=== PATIENT | female | born 1945 | race Caucasian/White ===

== ENCOUNTER 2017-10-05 09:27 | Inpatient (IN) | payer MEDICARE ==
[~2017-10-05] VITALS: Ht 162.6 cm; Wt 90.7 kg
[2017-10-05 09:37] VITALS: BP 192/170
[2017-10-05 09:54] LABS: HEMATOCRIT 38.5 % (37.0-47.0); HEMOGLOBIN 11.9 gm/dL (12.0-15.0); MCHC 30.9 g/dL (28.0-37.0); MCV 90.6 fL (80.0-100.0); MPV 8.9 fl. (7.2-11.1); NUCLEATED RBCS 0 /100WBC; PLATELET COUNT* 168 thou/uL (150-400); RBC 4.25 mil/uL (4.20-5.00); WBC 24.6 thou/uL (4.0-11.0)
[2017-10-05 09:56] LABS: CALCIUM 7.7 mg/dL (8.5-10.1); CREATININE 1.2 mg/dL (0.6-1.3); POTASSIUM 3.5 mmol/L (3.5-5.1)
[2017-10-05 10:00] LABS: APTT 67.2 Seconds (25.0-31.3); INR 1.2; PROTIME 12.1 Seconds (9.20-11.50)
[2017-10-05 10:06] LABS: TROPONIN-I LEVEL 0.21 ng/mL (<0.06)
[2017-10-05 10:17] LABS: ABSOLUTE MONOCYTES 1.7 thou/uL (0.0-1.2); ABSOLUTE NEUTROPHILS 6.9 thou/uL (1.6-8.1); PLATELET ESTIMATE ADEQUATE; TOXIC GRANULATION Occasional
[2017-10-05 10:31] LABS: BE -28.7 mmol/L (-2 to +3)
[2017-10-05 10:33] LABS: HCO3 7.9 mmol/L (22.0-26.0); PCO2 82.3 mmHg (35.0-45.0); PO2 124.4 mmHg (75.0-100.0); pH < 6.702 (7.340-7.450)
[2017-10-05 10:52] LABS: BE -25.5 mmol/L (-2 to +3)
[2017-10-05 10:53] LABS: PCO2 97.8 mmHg (35.0-45.0); PO2 188.3 mmHg (75.0-100.0); pH < 6.702 (7.340-7.450)
[2017-10-05 10:54] LABS: HCO3 10.8 mmol/L (22.0-26.0)
--- NOTE | 2017-10-05 16:12 | H ---
[address] [address] HISTORY AND PHYSICAL Name: DON BABCOCK Room: [address] IN [facility]#: [id number] Admission: 10/05/17 Attend Phys: Mansoor Finney Discharge: Date of : 45 Report #: [id number] THIS REPORT FOR: //name// CC: Tra Razo INDICATION: ST elevation myocardial infarction and cardiac arrest. HISTORY OF PRESENT ILLNESS: The patient is a 72-year-old white female who is unknown to myself. She presented to the emergency room after calling EMS. On route, she had full arrest with bradycardia. At the time of my arrival, she was undergoing acute resuscitative efforts. With multiple boluses of epinephrine and compressions, pulse was reestablished. The patient was intubated. The patient was brought to the cardiac catheterization lab for urgent coronary angiography. The patient continued to be unstable in the catheterization lab. Catheterization revealed a chronically occluded right coronary artery with collaterals. There was diffuse disease with an occluded LAD and a large circumflex with moderate nonocclusive disease noted. At this time, the it generalist was called to see if the right coronary could be open. EKG in the soto showed ST elevation in inferior leads with bifascicular block. A temporary pacemaker was placed during resuscitative efforts with adequate capture. PAST MEDICAL HISTORY: Unknown. She obviously has coronary artery disease. PAST SURGICAL HISTORY: Unknown. FAMILY HISTORY: Unknown. SOCIAL HISTORY: Unknown. REVIEW OF SYSTEMS: Not obtainable. PHYSICAL EXAMINATION: VITAL SIGNS: At the time of my arrival, a pulse of 110 was noted with no palpable pulse or blood pressure. During resuscitative efforts in the laborer/key man, blood pressure of up to 100/60 was obtained. HEENT: Head is normocephalic, atraumatic. NECK: Shows no obvious jugular venous distention. CHEST: Revealed lung soto to be relatively clear with artificial respiration. CARDIAC: Revealed distant S1 and S2. I did not appreciate gallop or rub. ABDOMEN: Revealed a protuberant abdomen that is soft. EXTREMITIES: Showed chronic edema and venous stasis changes noted. A 12-lead EKG in the field showed bifascicular block with ST elevation in the inferior leads consistent [place] [address] HISTORY AND PHYSICAL Name: DON BABCOCK Room: [address] IN [facility]#: [id number] Admission: 10/05/17 Attend Phys: Mansoor Finney Discharge: Date of : 45 Report #: [id number] Labs obtained in the hospital showed a white blood cell count 24.6, hemoglobin 11.9, and platelet count 168,000. Electrolytes were within normal limits with the exception of bicarb, which was slightly low at 20. BUN was 14, creatinine 1.2, serum glucose 377. Troponin was 0.21. Coags were within normal limits. APTT after heparin was 67.2 initially. Chest x-ray has yet to be obtained. IMPRESSION AND RECOMMENDATION: ST elevation myocardial infarction. The patient was brought to the cardiac catheterization lab for urgent catheterization. Findings are as outlined above. At this point, the patient is undergoing attempts to reopen the right coronary artery, although this may be chronic in nature. We will continue Levophed drip and copious amounts of IV fluid for resuscitative efforts. Prognosis remains grim. <ELECTRONICALLY SIGNED> By: Suleiman Razo MD, FACC 10/05/17 1612 1026 [id number] Razo MD, FACC /nt
--- NOTE | 2017-10-05 16:36 | EKG ---
[place] [address] ELECTROCARDIOGRAM REPORT Name: DON BABCOCK Room: [address] ADM IN [facility]#: [id number] Admission: 10/05/17 Attend Phys: Mansoor Finney Discharge: Date of : 45 Report #: [id number] THIS REPORT FOR: //name// [facility] ED Test Date: 2017-10-05 Test Time: 09:26:44 Pat Name: DON BABCOCK Department: Room: [facility] Gender: F Affiliate Manager: : 1945 Requested By: Akash Yun Order Number: [id number] MD: Suleiman Razo Measurements Intervals [place] Rate: 63 P: NM: QRS: -63 QRSD: 154 T: 62 QT: 458 QTc: 469 Interpretive Statements Junctional rhythm RBBB Probable anteroseptal infarct, recent No previous ECG available for comparison Electronically Signed On 10-05-2017 16:36:32 CHART CALCULATOR by Suleiman Razo [email or web address] <ELECTRONICALLY SIGNED> By: Suleiman Razo MD, [facility] 10/05/17 1636 5 5 Suleiman Razo MD, [facility] /EPI
--- NOTE | 2017-10-06 08:40 | D ---
[facility] [address] [place] [address] DISCHARGE SUMMARY Name: DON BABCOCK Room: [address]#: [id number] Admission: 10/05/17 Attend Phys: Mansoor Finney Discharge: 10/05/17 Date of : 45 Report #: [id number] THIS REPORT FOR: //name// CC: Tra Avelar Dr. Suleiman Partida DATE OF SERVICE: 10/05/[address]: 1[address] ST-elevation myocardial infarction. 2. Cardiac arrest. 3. Cardiogenic shock. HOSPITAL COURSE: The patient was brought to the Emergency Room after calling EMS to her house. On the way to the hospital, she had a cardiac arrest with bradycardia, junctional rhythm and then pulseless electrical activity. In the emergency room, she was acutely resuscitated with sodium bicarbonate and epinephrine. The patient was intubated at that time and brought to the cardiac catheterization lab. EKGs in the field suggested inferior wall FL. The patient underwent cardiac catheterization urgently. This showed an occluded right coronary artery as well as a chronically occluded LAD. Both were filled by left to right and left to left collaterals respectively. EF was not ascertained at this time. The patient underwent emergent percutaneous coronary intervention to the right coronary artery. Immediately preceding the procedure, the patient had improved blood pressure with systolic blood pressures of 110 and paced rhythm in the 80s. The patient was then transferred to the Intensive Care Unit. Shortly after arrival at the Intensive Care Unit, the patient again lost her pulse and monitor showed asystole at this time. ACLS protocol was again followed with the administration of sodium bicarbonate and epinephrine as well as chest compressions and artificial respirations by ET tube and bagging. Despite aggressive efforts, resuscitative efforts were unsuccessful. The patient was pronounced. <ELECTRONICALLY SIGNED> By: Suleiman Razo MD, FACC 10/06/17 0840 1615 [id number] Razo MD, FACC /nt
--- NOTE | 2017-10-11 08:51 | CARD ---
[address] [address] CARDIAC CATH REPORT Name: DON BABCOCK Room: [address]#: [id number] Admission: 10/05/17 Attend Phys: Mansoor Finney Discharge: 10/05/17 Date of : 45 Report #: [id number] THIS REPORT FOR: //name// APPROVED REPORT Patient Details Patient Status: In-Patient Room #: The patient is a 72 year-old female Event Personnel Suleiman Razo Carrier Blower, Lori Lee RN Cobbler Upper, Noel Mccurdy (R) Monitor, Cintia Martel Blick, David Ruby Software Developer, Kiara Boyer RTR Monitor, Yandy Low RN turner machine operator Performed cath pci, temporary pacer Indication Abnormal ECG, Dyspnea, Syncope Risk Factors Coronary Artery Disease Previous Procedures/Diagnoses Previous PCI Admission/Lab Medications/Medications given during procedure Glycoprotein IllbIlla Inhibitors, Heparin Unfract. Procedure Narrative The patient was brought emergently to the Cardiac Catheterization Laboratory and was prepped and draped in a sterile manner. The right femoral was infiltrated with 1% Lidocaine subcutaneous anesthesia. A 6 fr sheath was inserted into the right femoral artery. Coronary angiography was performed using coronary diagnostic catheters. The right coronary system was accessed and visualized with a JR4 catheter. The left coronary system was accessed and visualized with a JL4 catheter. Left ventricular/Aortic Valve gradient assessed via catheter pullback. There was no hematoma. sheaths were sutured in place 6 albanian sheath was placed in the right femoral vein and a 5 albanian temporary pacing catheter was advanced to the right ventricular [place] [address] CARDIAC CATH REPORT Name: DON BABCOCK Room: [address]#: [id number] Admission: 10/05/17 Attend Phys: Mansoor Finney Discharge: 10/05/17 Date of : 45 Report #: [id number] Dose: 1358.94 mGy Contrast Type and Amount: Visipaque 160 ml Diagnostic Cath Left Main Normal LAD 20% narrowed proximally totally occluded in the midportion. The distal vessel fills by left to left collaterals and appears diffusely diseased. Diagonal 1 50% narrowed in the midportion. Circumflex The circumflex proper appears to have significant OM1 The first obtuse marginal branch has a 70% proximal stenosis noted. OM2 The second obtuse marginal branch is a 50% mid stenosis noted. Right Coronary The right coronary artery is totally occluded proximally. The distal branches appear to fill faintly by left to right collaterals. R PDA Faintly filled by [id number]-zhart collaterals. RPLV Faintly filled by [id number]-cfpgd collaterals. Hemodynamics The left ventricular end diastolic pressure is 20 mmHg. There was no gradient across the aortic valve upon pullback. Pullback from the left ventricle to the aorta revealed no gradient across the aortic valve. Post catheterization and intervention to the right coronary artery the aortic root pressure was 121/75 mmHg with a mean arterial pressure of 97 mmHg. PCI Technique Lesion Anticoagulation was achieved with Heparin. iv aggrastat was used Percutaneous coronary intervention was performed on the proximal right coronary artery. The lesion stenosis prior to intervention was 100% with CLARI 0 flow. A 6 fr 3drc Guide Catheter was used to engage the rca ostium. A whisper Interventional Guidewire was used to cross the lesion. BALLOON DILATION A Balloon catheter 2.5 x 8 mm was inserted and inflated up to 9atm for 10seconds. Repeat angiography revealed the following post-dilatation results: 50% stenosis. STENT DEPLOYMENT A bare metal stent 2.5 x 12 mm was inserted and inflated up to 11atm for 15seconds. Repeat angiography revealed the following post-stent deployment results: 0% [place] [address] CARDIAC CATH REPORT Name: DON BABCOCK Room: [address]#: [id number] Admission: 10/05/17 Attend Phys: Mansoor Finney Discharge: 10/05/17 Date of : 45 Report #: [id number] Final angiography reveals 0 % stenosis with CLARI 3 flow. COMMENTS The RCA was completely occluded just after the conus branch and had collaterals to the distal rca from the left coronary. It was unclear whether this represented a recent or chronic occlusion. However, because of ECG changes, PTCA was attempted. Although a BMW wire was unable to cross the occlusion, a whisper wire was able to cross the occlusion without significant difficulty. After PTCA, there was a residual 50% stenosis at the site of occlusion, but the mid and distal RCA was diffusely dieased, with a long 90% mid stenosis noted. Since the patient was unstable, it was decided not to proceed with additional stenting at this time Conclusion 1. severe CAD with complete occlusion noted of the LAD and RCA. There was a significant stenosis noted of the distal circumflex. 2. Successful stenting of the proximal RCA occlusion, although the mid and distal RCA was diffusely diseased Recommendations Aggressive Medical Therapy Diagnostic Cath Approved by: Suleiman Razo MD Date/Time: <ELECTRONICALLY SIGNED> By: Graeme Bauer MD, [facility] 10/11/17 0850 0850 [id number] Bauer MD, [facility] /INF
== END 2017-10-05 12:10 | DRG 853 ==
LOC: M.CL 09:27 → M.ERS 09:27 → EDBD 09:27 → M.ICU 09:47 → M.TBA-CV 09:47 → M.ICU 11:42
PROVIDERS: Emergency Medicine Emergency Medical Services; Internal Medicine Cardiovascular Disease; ADMIT Internal Medicine
PROC: B211YZZ Fluoroscopy of Multiple Coronary Arteries using Other Contrast (ICD-10-PCS; principal; 2017-10-05)
PROC: 4A023N7 Measurement of Cardiac Sampling and Pressure, Left Heart, Percutaneous Approach (ICD-10-PCS; principal; 2017-10-05)
PROC: 5A1935Z Respiratory Ventilation, Less than 24 Consecutive Hours (ICD-10-PCS; 2017-10-05)
PROC: 02703DZ Dilation of Coronary Artery, One Artery with Intraluminal Device, Percutaneous Approach (ICD-10-PCS; 2017-10-05)
DX: A41.9 Sepsis, unspecified organism (principal); I21.3 ST elevation (STEMI) myocardial infarction of unspecified site; R65.10 Systemic inflammatory response syndrome (SIRS) of non-infectious origin without acute organ dysfunction; I25.10 Atherosclerotic heart disease of native coronary artery without angina pectoris; I46.9 Cardiac arrest, cause unspecified